=== PATIENT | male | born 1990 | race Caucasian/White ===

== ENCOUNTER 2019-12-28 18:15 | Emergency (ER) | payer SELFPAY ==
[~2019-12-28] VITALS: Ht 170.2 cm; Wt 61.2 kg
[2019-12-28 18:23] VITALS: Ht 170.2 cm; Wt 61.2 kg
[2019-12-28 20:16] VITALS: BP 123/82
== END 2019-12-28 20:16 | disposition home or self-care (01) ==
LOC: ED 18:15
DX: S51.811A Laceration without foreign body of right forearm, initial encounter (principal); W26.8XXA Contact with other sharp object(s), not elsewhere classified, initial encounter; Y93.89 Activity, other specified; Y92.89 Other specified places as the place of occurrence of the external cause; Y99.8 Other external cause status
CPT/HCPCS: 90715; J1885; J2001; Q0092